=== PATIENT | female | born 1990 | race Caucasian/White ===

== ENCOUNTER 2021-08-29 19:03 | Inpatient (IN) | payer BC ==
[2021-08-29] MEDS ORDERED: Nalbuphine 10 MG/1 ML Vial IVPUSH PRN (19:36)
[2021-08-29] MEDS ORDERED: Sodium Chloride 0.9% 10 ML Syringe FLUSH PRN (19:36)
[2021-08-29] MEDS ORDERED: Ondansetron 4 MG/2 ML SDV IVPUSH PRN (19:36)
[2021-08-29] MEDS: Lactated Ringers 1,000 ML IV SCH (20:27)
[2021-08-29] MEDS: Oxytocin/Lactated Ringers 10 UNIT/1,000 ML BAG IV SCH (20:28)
[2021-08-29] MEDS: Sodium Chloride 0.9% 10 ML Syringe FLUSH SCH (21:11)
[2021-08-30] MEDS ORDERED: Lidocaine 1.5% with EPINEPHrine 1:200,000 5 ML Amp ONE
[2021-08-30] MEDS ORDERED: Oxytocin/Lactated Ringers 20 UNIT/1,000 ML BAG IV SCH (01:30)
[2021-08-30] MEDS ORDERED: ePHEDrine 50 MG/ML SDV IVPUSH PRN (03:52)
[2021-08-30] MEDS ORDERED: diphenhydrAMINE 50 MG/ML SDV IVPUSH PRN (03:52)
[2021-08-30] MEDS ORDERED: fentaNYL 100 MCG/2 ML SDV EPIDUR PRN (03:52)
[2021-08-30] MEDS: Lactated Ringers 1,000 ML IV SCH ×2 (04:27→06:06)
[2021-08-30] MEDS: Bupivacaine/fentaNYL/NS 100 ML Bag EPIDUR PRN ×2 (04:28→10:13)
[2021-08-30] MEDS: Calcium Carbonate 500 MG Tab.Chew PO PRN ×2 (09:27→11:55)
[2021-08-30] MEDS: Sodium Chloride 0.9% 10 ML Syringe FLUSH SCH (14:27)
[2021-08-30] MEDS: Oxytocin/Lactated Ringers 10 UNIT/1,000 ML BAG IV SCH (14:28)
[2021-08-30] MEDS ORDERED: Benzocaine/Menthol 20%-0.5% Spray 78 GM Cannister TOP PRN (14:28)
[2021-08-30] MEDS ORDERED: Acetaminophen 325 MG Tab PO PRN (14:28)
[2021-08-30] MEDS ORDERED: Witch Hazel Medicated Pads 40/Jar TOP PRN (14:28)
[2021-08-30] MEDS ORDERED: Misoprostol 200 MCG Tab PO STA (14:30)
[2021-08-30] MEDS: Ibuprofen 600 MG Tab PO PRN (15:34)
[2021-08-31] MEDS: Ibuprofen 600 MG Tab PO PRN ×2 (09:32→20:41)
[2021-08-31] MEDS: Docusate Sodium 100 MG Cap PO PRN ×2 (09:32→20:41)
[2021-09-01] MEDS: Ibuprofen 600 MG Tab PO PRN (08:00)
== END 2021-09-01 17:50 | disposition home or self-care (01) | DRG 560 ==
LOC: JD.OBCHECK 19:03 → JD.OB 19:09 → JD.OBCHECK 19:37 → OBSVTOIN 08-30 15:19 → JD.OB 08-30 19:44
PROVIDERS: ADMIT Obstetrics & Gynecology; ATTEND Obstetrics & Gynecology
PROC: 10D07Z6 Extraction of Products of Conception, Vacuum, Via Natural or Artificial Opening (ICD-10-PCS; principal; 2021-08-30)
PROC: 10907ZC Drainage of Amniotic Fluid, Therapeutic from Products of Conception, Via Natural or Artificial Opening (ICD-10-PCS; 2021-08-30)
PROC: 3E033VJ Introduction of Other Hormone into Peripheral Vein, Percutaneous Approach (ICD-10-PCS; 2021-08-30)
PROC: 4A1HXCZ Monitoring of Products of Conception, Cardiac Rate, External Approach (ICD-10-PCS; 2021-08-30)
PROC: 3E0R3BZ Introduction of Anesthetic Agent into Spinal Canal, Percutaneous Approach (ICD-10-PCS; 2021-08-30)
DX: O70.20 Third degree perineal laceration during delivery, unspecified (principal); Z3A.39 39 weeks gestation of pregnancy; Z37.0 Single live birth; Z88.0 Allergy status to penicillin; Z88.2 Allergy status to sulfonamides; Z20.822 Contact with and (suspected) exposure to COVID-19
CPT/HCPCS: 36415; 51702; 59025; 59409; 85027; 86592; 86850; 86900; 86901; A9270-GY; J2405; J2590; J3010; J7120; U0002

== ENCOUNTER 2023-03-21 15:04 | Emergency (ER) | payer BC ==
[2023-03-21 15:33] LABS: BASOPHILS PERCENT AUTO 0.4 % (0.0-1.0); EOSINOPHILS ABSOLUTE AUTO 0.1 K/mm3 (0.0-0.4); HEMATOCRIT 39.3 % (37.0-47.0); HEMOGLOBIN 13.8 gm/dl (12.0-16.0); IMMATURE GRAN ABSOLUTE AUTO 0.01 K/mm3 (0.00-0.05); IMMATURE GRAN PERCENT AUTO 0.1 % (0.0-0.4); LYMPHOCYTES ABSOLUTE AUTO 2.7 K/mm3 (1.0-4.8); LYMPHOCYTES PERCENT AUTO 33.8 % (24.0-44.0); MEAN CORPUSCULAR HEMOGLOBIN 31.7 pg (28.0-32.0); MEAN CORPUSCULAR HGB CONC 35.1 g/dl (32.0-36.0); MEAN CORPUSCULAR VOLUME 90.3 fl (83.0-99.0); MEAN PLATELET VOLUME 11.2 fl (9.4-12.3); MONOCYTES ABSOLUTE AUTO 0.5 K/mm3 (0.0-0.8); MONOCYTES PERCENT AUTO 5.9 % (0.0-8.0); NEUTROPHILS ABSOLUTE AUTO 4.6 K/mm3 (1.8-7.7); NEUTROPHILS PERCENT AUTO 58.8 % (41.0-71.0); PLATELET COUNT,PLT 264 K/mm3 (150-400); RED BLOOD CELL COUNT 4.35 M/mm3 (4.10-5.30); WHITE BLOOD CELL COUNT,WBC 7.83 K/mm3 (3.9-11.3)
[2023-03-21 15:54] LABS: A/G RATIO 0.8 (1-2); ALBUMIN 3.3 g/dl (3.4-5.0); ANION GAP 13.8 (5-15); BILIRUBIN TOTAL 0.2 mg/dL (0.2-1.0); BUN/CREATININE RATIO 13.3 (14-18); CALCIUM 9.6 mg/dL (8.5-10.1); CREATININE 0.9 mg/dL (0.55-1.02); EST CRCL DRUG DOSING (CG) 79.25 mL/min; POTASSIUM,K 3.8 mEq/L (3.5-5.1); PROTEIN TOTAL,TP 7.3 g/dl (6.4-8.2)
[2023-03-21 17:39] LABS: APPEARANCE,URINE CLEAR (Clear); BILIRUBIN,URINE NEGATIVE (Negative); COLOR,URINE YELLOW (Yellow); GLUCOSE,URINE NEGATIVE (Negative); KETONES,URINE NEGATIVE (Negative); LEUKOCYTE ESTERASE,URINE NEGATIVE (Negative); NITRITE,URINE NEGATIVE (Negative); OCCULT BLOOD,URINE 3+ (Negative); PH,URINE 6.5 (5.0-8.0); PROTEIN,URINE NEGATIVE (Negative); UROBILINOGEN,URINE 0.2 (0.2-1.0)
[2023-03-21 18:03] LABS: RBC,URINE 50-75 /hpf (0-5); WBC,URINE 0-5 /hpf (0-5)
[2023-03-21 18:04] LABS: BACTERIA,URINE FEW /hpf (FEW); MUCUS,URINE FEW /hpf (FEW); SQUAMOUS EPITHELIAL CELLS,UR 0-5 /hpf (0-5)
== END 2023-03-21 18:12 | disposition home or self-care (01) ==
LOC: JD.ED 15:04
DX: O26.851 Spotting complicating pregnancy, first trimester (principal); Z3A.01 Less than 8 weeks gestation of pregnancy; Z86.16 Personal history of COVID-19; Z88.0 Allergy status to penicillin; Z88.2 Allergy status to sulfonamides
CPT/HCPCS: 36415; 76817; 76817-26; 80053; 81001; 84702; 85025; 99284